=== PATIENT | female | born 1945 | race Caucasian/White ===

== ENCOUNTER → 2016-07-12 | Outpatient (REF) | payer MEDICARE, BC | LOC: M SFHCCLAY 10:47 | PROVIDERS: ATTEND Family Medicine | DX: I10 Essential (primary) hypertension (principal); G45.9 Transient cerebral ischemic attack, unspecified ==

== ENCOUNTER → 2016-07-21 | Outpatient (REF) | payer MEDICARE, BC ==
[2016-07-21 12:19] LABS: MEAN CORPUSCULAR HEMOGLOBIN 33.9 pg (27.0-33.0); MEAN CORPUSCULAR HGB CONC 34.3 g/dl (32.0-36.5); MEAN CORPUSCULAR VOLUME 98.8 fl (80.0-96.0); RED CELL DISTRIBUTION WIDTH 12.5 % (11.5-14.5); WHITE BLOOD COUNT 4.3 K/mm3 (4.0-10.0)
[2016-07-21 12:46] LABS: ALBUMIN 3.5 GM/DL (3.2-5.2); ALBUMIN/GLOBULIN RATIO 1.13 (1.00-1.93); BILIRUBIN,TOTAL 0.5 MG/DL (0.2-1.0); CALCIUM LEVEL 9.6 MG/DL (8.8-10.2); CREATININE FOR GFR 0.99 MG/DL (0.55-1.02); GLOMERULAR FILTRATION RATE 58.5 (>39); POTASSIUM SERUM 4.3 MEQ/L (3.5-5.1); TOTAL PROTEIN 6.6 GM/DL (6.4-8.2)
== END ==
LOC: M SFHCCLAY 08:55
PROVIDERS: ATTEND Family Medicine
DX: L30.9 Dermatitis, unspecified (principal); I10 Essential (primary) hypertension; G45.9 Transient cerebral ischemic attack, unspecified

== ENCOUNTER → 2016-11-11 | Outpatient (REF) | payer MEDICARE, BC ==
[2016-11-11 16:51] LABS: CREATININE FOR GFR 1.09 MG/DL (0.55-1.02); GLOMERULAR FILTRATION RATE 52.4 (>39)
== END ==
LOC: M LAB REF 16:15
PROVIDERS: ATTEND Nurse Practitioner Family
DX: I65.23 Occlusion and stenosis of bilateral carotid arteries (principal)

== ENCOUNTER → 2016-12-01 | Outpatient (CLI) | payer MEDICARE, BC ==
--- NOTE | 2016-12-01 11:48 | REPMRS ---
Patient History Patient is postmenopausal and has history of other cancer at age 53. No known family history of cancer. Taking estrogen for 6 years. Digital Woman Screen Mammo: December 01, 2016 - Exam #: [id number] Bilateral CC and MLO view(s) were taken. Technologist: Trina Lovett, Technologist Prior study comparison: November 30, 2015, digital woman screen mammo performed at [facility]. November 27, 2014, digital woman screen mammo performed at [facility]. November 26, 2013, digital woman screen mammo performed at [facility]. FINDINGS: There are scattered fibroglandular densities. There has been no change in the appearance of the mammogram from the prior studies. There is a mild amount of scattered fibroglandular density which is fairly symmetric. There is no interval development of dominant mass, architectural distortion, or clustered microcalcification suggestive of malignancy. ASSESSMENT: BI-RADS/ACR category 1 mammogram. Negative. Recommendation Routine screening mammogram in 1 year (for women over age 40). This mammogram was interpreted with the aid of an FDA-approved computer-aided dectection system. Electronically Signed By: Gio Smith MD 12/01/16 [id number]
--- NOTE | 2016-12-02 09:01 | DEXA ---
AP SPINE L1 - L4 1.549 2.9 4.6 LT FEMUR TOTAL 1.089 0.6 2.3 RT FEMUR TOTAL 1.161 1.2 2.9 TOTAL BODY TOTAL OTHER DUAL FEMUR FRAX* ASSESSMENT Risk factors: 10 year probability of fracture Major osteoporotic fracture % Hip fracture % COMMENTS: Normal bone densitometry of the spine and hips. The density of the right hip has increased 2.1% since 11/10/2010. The density of the spine has increased 9.6% since the initial exam on 2002. The spine density has increased 4.1% since the most recent exam on 11/10/2010. The density of the left hip has decreased 1.6% since the initial exam on 2002. The density of the left hip has decreased 0.1% since the most recent exam on . FOLLOW-UP: Recommendation for the next bone density exam: 5 years. KRISTEN
== END ==
LOC: M WHC 09:56
PROVIDERS: ATTEND Nurse Practitioner Family
DX: Z01.419 Encounter for gynecological examination (general) (routine) without abnormal findings (principal); Z12.31 Encounter for screening mammogram for malignant neoplasm of breast; N95.9 Unspecified menopausal and perimenopausal disorder; Z12.12 Encounter for screening for malignant neoplasm of rectum; Z78.0 Asymptomatic menopausal state; Z92.23 Personal history of estrogen therapy
CPT/HCPCS: 77080; G0101; G0202

== ENCOUNTER → 2017-07-12 | Outpatient (REF) | payer MEDICARE, BC ==
[2017-07-12 16:53] LABS: HEMATOCRIT 38.4 % (36.0-47.0); HEMOGLOBIN 12.8 g/dl (12.0-15.5); MEAN CORPUSCULAR HEMOGLOBIN 32.8 pg (27.0-33.0); MEAN CORPUSCULAR HGB CONC 33.3 g/dl (32.0-36.5); MEAN CORPUSCULAR VOLUME 98.5 fl (80.0-96.0); PLATELET COUNT, AUTOMATED 224 10^3/uL (150-450); RED CELL DISTRIBUTION WIDTH 12.2 % (11.5-14.5); WHITE BLOOD COUNT 6.1 10^3/uL (4.0-10.0)
[2017-07-12 18:15] LABS: VITAMIN B12 LEVEL 1382 PG/ML (247-911)
[2017-07-12 18:23] LABS: ALBUMIN 3.9 GM/DL (3.2-5.2); ALBUMIN/GLOBULIN RATIO 1.15 (1.00-1.93); ALKALINE PHOSPHATASE 60 U/L (45-117); ALT/SGPT 27 U/L (12-78); ANION GAP 5 MEQ/L (8-16); AST/SGOT 16 U/L (7-37); BILIRUBIN,TOTAL 0.5 MG/DL (0.2-1.0); BLOOD UREA NITROGEN 27 MG/DL (7-18); CALCIUM LEVEL 9.3 MG/DL (8.8-10.2); CARBON DIOXIDE LEVEL 28 MEQ/L (21-32); CHLORIDE LEVEL 110 MEQ/L (98-107); CHOLESTEROL LEVEL 174 MG/DL (<200); CREATININE FOR GFR 1.01 MG/DL (0.55-1.30); GLUCOSE, FASTING 92 MG/DL (70-100); HDL CHOLESTEROL 71 MG/DL (>40); LDL CHOLESTEROL 81.8 MG/DL (<100); NON-HDL-C 103 MG/DL; POTASSIUM SERUM 4.7 MEQ/L (3.5-5.1); SODIUM LEVEL 143 MEQ/L (136-145); TOTAL PROTEIN 7.3 GM/DL (6.4-8.2); TRIGLYCERIDES LEVEL 106 MG/DL (<150)
== END ==
LOC: M SFHCCLAY 10:28
DX: Z00.00 Encounter for general adult medical examination without abnormal findings (principal); R41.3 Other amnesia; I10 Essential (primary) hypertension; Z23 Encounter for immunization
CPT/HCPCS: 84443

== ENCOUNTER → 2017-08-02 | Outpatient (CLI) | payer MEDICARE, BC | LOC: M RAD 10:13 | DX: R41.3 Other amnesia (principal); I77.89 Other specified disorders of arteries and arterioles | CPT/HCPCS: 70551 ==

== ENCOUNTER → 2017-11-02 | Outpatient (REF) | payer MEDICARE ==
[2017-11-02 15:27] LABS: BLOOD UREA NITROGEN 23 MG/DL (7-18)
[2017-11-02 15:27] LABS: GLOMERULAR FILTRATION RATE 51.7 (>39)
== END ==
LOC: M LABDRAWC 12:44
DX: I65.22 Occlusion and stenosis of left carotid artery (principal)
CPT/HCPCS: 82565

== ENCOUNTER → 2017-11-20 | Outpatient (CLI) | payer MEDICARE | LOC: M WHC 10:03 | DX: Z01.419 Encounter for gynecological examination (general) (routine) without abnormal findings (principal); Z12.13 Encounter for screening for malignant neoplasm of small intestine (principal); Z78.0 Asymptomatic menopausal state; Z12.31 Encounter for screening mammogram for malignant neoplasm of breast; Z92.23 Personal history of estrogen therapy; Z12.12 Encounter for screening for malignant neoplasm of rectum | CPT/HCPCS: 77067 ==

== ENCOUNTER → 2018-08-02 | Outpatient (CLI) | payer MEDICARE ==
--- NOTE | 2018-08-02 14:07 | REP ---
RIGHT HIP, TWO VIEWS: HISTORY: Arthritis. There is no acute fracture or dislocation. There is minimal narrowing of the joint space with associated sclerosis and osteophyte formation. IMPRESSION: Degenerative change as described above.
== END ==
LOC: M CLY 12:43
PROVIDERS: ATTEND Family Medicine
DX: M16.11 Unilateral primary osteoarthritis, right hip (principal)
CPT/HCPCS: 73502; G0463

== ENCOUNTER → 2018-08-07 | Outpatient (REF) | payer MEDICARE ==
[2018-08-07 13:12] LABS: CALCIUM LEVEL 9.3 MG/DL (8.8-10.2); CHOLESTEROL RISK RATIO 2.666 (<5); CREATININE FOR GFR 1.07 MG/DL (0.55-1.30); GLOMERULAR FILTRATION RATE 53.2 (>39); POTASSIUM SERUM 4.4 MEQ/L (3.5-5.1)
== END ==
LOC: M SFHCCLAY 09:02
PROVIDERS: ATTEND Family Medicine
DX: E78.00 Pure hypercholesterolemia, unspecified (principal)

== ENCOUNTER → 2018-11-27 | Outpatient (CLI) | payer MEDICARE ==
--- NOTE | 2018-11-27 12:29 | REPMRS ---
Patient History The patient states she had a clinical breast exam in 11/2018. Patient is postmenopausal and has history of other cancer at age 53. No known family history of cancer. Took estrogen for 7 years. 3D TOMOSYNTHESIS WAS PERFORMED. [facility] lifetime risk for breast cancer is 2.7%. Digital Woman Screen Mammo: November 27, 2018 - Exam #: [id number] Bilateral CC and MLO view(s) were taken. Technologist: Alcira Guevara, Technologist Prior study comparison: November 20, 2017, bilateral digital woman screen mammo performed at [facility]. December 01, 2016, digital woman screen mammo performed at [facility] [employer] [facility]. FINDINGS: There are scattered fibroglandular densities. There has been no change in the appearance of the mammogram from the prior studies. There is a mild amount of residual fibroglandular tissue which is fairly symmetric. There is no interval development of dominant mass, architectural distortion, or clustered microcalcification suggestive of malignancy. Assessment: BI-RADS/ACR category 1 mammogram. Negative Mammogram. Recommendation Routine screening mammogram in 1 year (for women over age 40). This mammogram was interpreted with the aid of an FDA-approved computer-aided dectection system. Electronically Signed By: Nato Valdez MD 11/27/18 [id number]
== END ==
LOC: M WHC 10:05
PROVIDERS: ATTEND Nurse Practitioner Family
DX: Z01.419 Encounter for gynecological examination (general) (routine) without abnormal findings (principal); Z12.31 Encounter for screening mammogram for malignant neoplasm of breast; Z78.0 Asymptomatic menopausal state; Z85.89 Personal history of malignant neoplasm of other organs and systems; Z92.23 Personal history of estrogen therapy
CPT/HCPCS: 77063; 77067; G0101

== ENCOUNTER → 2019-07-11 | Outpatient (REF) | payer MEDICARE ==
[2019-07-11 16:37] LABS: HEMOGLOBIN 12.4 g/dl (12.0-15.5); MEAN CORPUSCULAR HEMOGLOBIN 32.5 pg (27.0-33.0); MEAN CORPUSCULAR HGB CONC 32.6 g/dl (32.0-36.5); MEAN CORPUSCULAR VOLUME 99.7 fl (80.0-96.0); PLATELET COUNT, AUTOMATED 226 10^3/uL (150-450); RED BLOOD COUNT 3.81 10^6/uL (4.00-5.40); WHITE BLOOD COUNT 5.1 10^3/uL (4.0-10.0)
[2019-07-11 16:51] LABS: ALBUMIN 3.7 GM/DL (3.2-5.2); BILIRUBIN,TOTAL 0.8 MG/DL (0.2-1.0); CALCIUM LEVEL 8.8 MG/DL (8.8-10.2); CHOLESTEROL RISK RATIO 2.562 (<5); CREATININE FOR GFR 1.22 MG/DL (0.55-1.30); GLOMERULAR FILTRATION RATE 45.6 (>39); PERCENT SATURATION 36.7 % (13.2-45.0); POTASSIUM SERUM 4.4 MEQ/L (3.5-5.1); THYROID STIMULATING HORMONE 0.998 uIU/ML (0.358-3.740); TOTAL PROTEIN 7.1 GM/DL (6.4-8.2)
== END ==
LOC: M SFHCCLAY 10:51
PROVIDERS: ATTEND Family Medicine
DX: I10 Essential (primary) hypertension (principal); K21.9 Gastro-esophageal reflux disease without esophagitis; E83.110 Hereditary hemochromatosis

== ENCOUNTER → 2019-08-09 | Outpatient (REF) | payer MEDICARE ==
[2019-08-09 11:51] LABS: BASO % 0.9 % (0.0-1.0); EOS # 0.1 10^3/uL (0.0-0.5); EOS % 1.6 % (0.0-3.0); HEMATOCRIT 38.5 % (36.0-47.0); LYMPH # 1.6 10^3/uL (1.5-5.0); LYMPH % 35.5 % (24.0-44.0); MEAN CORPUSCULAR HEMOGLOBIN 33.2 pg (27.0-33.0); MEAN CORPUSCULAR HGB CONC 33.8 g/dl (32.0-36.5); MEAN CORPUSCULAR VOLUME 98.5 fl (80.0-96.0); MONO # 0.5 10^3/uL (0.0-0.8); MONO % 10.5 % (0.0-5.0); NEUTROPHILS # 2.2 10^3/uL (1.5-8.5); NEUTROPHILS % 51.3 % (36.0-66.0); PLATELET COUNT, AUTOMATED 215 10^3/uL (150-450); RED BLOOD COUNT 3.91 10^6/uL (4.00-5.40); WHITE BLOOD COUNT 4.4 10^3/uL (4.0-10.0)
[2019-08-09 12:27] LABS: PERCENT SATURATION 53.2 % (13.2-45.0)
== END ==
LOC: M SFHCPLAZ 11:15
PROVIDERS: ATTEND Family Medicine
DX: E83.110 Hereditary hemochromatosis (principal)

== ENCOUNTER → 2019-09-06 | Outpatient (REF) | payer MEDICARE ==
[2019-09-06 16:06] LABS: HEMATOCRIT 38.9 % (36.0-47.0); HEMOGLOBIN 12.8 g/dl (12.0-15.5); MEAN CORPUSCULAR HEMOGLOBIN 32.4 pg (27.0-33.0); MEAN CORPUSCULAR HGB CONC 32.9 g/dl (32.0-36.5); MEAN CORPUSCULAR VOLUME 98.5 fl (80.0-96.0); PLATELET COUNT, AUTOMATED 223 10^3/uL (150-450); RED BLOOD COUNT 3.95 10^6/uL (4.00-5.40); WHITE BLOOD COUNT 4.4 10^3/uL (4.0-10.0)
[2019-09-06 16:39] LABS: FERRITIN 36 NG/ML (8-252); IRON (FE) 165 UG/DL (50-170)
== END ==
LOC: M SFHCCLAY 09:40
PROVIDERS: ATTEND Family Medicine
DX: E83.110 Hereditary hemochromatosis (principal)

== ENCOUNTER → 2019-11-29 | Outpatient (CLI) | payer MEDICARE ==
--- NOTE | 2019-11-29 12:11 | REPMRS ---
Patient History The patient states she had a clinical breast exam in 2019. No known family history of cancer. Took estrogen for 7 years. 3D TOMOSYNTHESIS WAS PERFORMED. [facility]%. ASTRID FRANCOIS A. Digital Woman Screen Mammo: November 29, 2019 - Exam #: [id number] Bilateral CC and MLO view(s) were taken. Technologist: Lilia Barney, Technologist Prior study comparison: November 27, 2018, bilateral digital woman screen mammo performed at [facility]. November 20, 2017, bilateral digital woman screen mammo performed at [facility]. FINDINGS: There are scattered fibroglandular densities. There has been no change in the appearance of the mammogram from the prior studies. There is a mild amount of residual fibroglandular tissue which is fairly symmetric. There is no interval development of dominant mass, architectural distortion, or clustered microcalcification suggestive of malignancy. Assessment: BI-RADS/ACR category 1 mammogram. Negative Mammogram. Recommendation Routine screening mammogram in 1 year (for women over age 40). This mammogram was interpreted with the aid of an FDA-approved computer-aided dectection system. Electronically Signed By: Nato Valdez MD 11/29/19 0630
== END ==
LOC: M WHC 10:32
PROVIDERS: ATTEND Nurse Practitioner Family
DX: Z12.31 Encounter for screening mammogram for malignant neoplasm of breast (principal); Z92.23 Personal history of estrogen therapy

== ENCOUNTER → 2019-12-05 | Outpatient (REF) | payer MEDICARE ==
[2019-12-05 12:40] LABS: HEMOGLOBIN 12.5 g/dl (12.0-15.5); MEAN CORPUSCULAR HEMOGLOBIN 32.4 pg (27.0-33.0); MEAN CORPUSCULAR HGB CONC 32.1 g/dl (32.0-36.5); PLATELET COUNT, AUTOMATED 216 10^3/uL (150-450); RED BLOOD COUNT 3.86 10^6/uL (4.00-5.40); WHITE BLOOD COUNT 5.6 10^3/uL (4.0-10.0)
[2019-12-05 13:07] LABS: ALBUMIN 3.5 GM/DL (3.2-5.2); BILIRUBIN,TOTAL 0.5 MG/DL (0.2-1.0); CALCIUM LEVEL 9.3 MG/DL (8.8-10.2); CHOLESTEROL RISK RATIO 2.984 (<5); CREATININE FOR GFR 1.23 MG/DL (0.55-1.30); FREE T4 1.15 NG/DL (0.76-1.46); GLOMERULAR FILTRATION RATE 45.2 (>39); POTASSIUM SERUM 4.7 MEQ/L (3.5-5.1); THYROID STIMULATING HORMONE 1.8 uIU/ML (0.358-3.740); TOTAL PROTEIN 6.8 GM/DL (6.4-8.2)
== END ==
LOC: M SFHCCLAY 08:52
PROVIDERS: ATTEND Family Medicine
DX: I10 Essential (primary) hypertension (principal); K21.9 Gastro-esophageal reflux disease without esophagitis; E78.00 Pure hypercholesterolemia, unspecified; E04.1 Nontoxic single thyroid nodule; E83.110 Hereditary hemochromatosis

== ENCOUNTER → 2019-12-06 | Outpatient (REF) | payer MEDICARE | LOC: M LAB REF 18:18 | PROVIDERS: ATTEND Dermatology | DX: C44.622 Squamous cell carcinoma of skin of right upper limb, including shoulder (principal); L90.5 Scar conditions and fibrosis of skin; L57.0 Actinic keratosis; L81.4 Other melanin hyperpigmentation ==

== ENCOUNTER → 2019-12-13 | Outpatient (REF) | payer MEDICARE | LOC: M LAB REF 08:30 | PROVIDERS: ATTEND Dermatology | DX: L90.5 Scar conditions and fibrosis of skin (principal); L57.0 Actinic keratosis; L81.4 Other melanin hyperpigmentation ==

== ENCOUNTER → 2020-07-09 | Outpatient (REF) | payer MEDICARE ==
[2020-07-09 17:09] LABS: HEMOGLOBIN 12.4 g/dl (12.0-15.5); MEAN CORPUSCULAR HEMOGLOBIN 33.2 pg (27.0-33.0); MEAN CORPUSCULAR HGB CONC 32.6 g/dl (32.0-36.5); MEAN CORPUSCULAR VOLUME 101.9 fl (80.0-96.0); PLATELET COUNT, AUTOMATED 211 10^3/uL (150-450); RED BLOOD COUNT 3.73 10^6/uL (4.00-5.40); WHITE BLOOD COUNT 5.1 10^3/uL (4.0-10.0)
[2020-07-09 17:44] LABS: CHOLESTEROL RISK RATIO 2.652 (<5)
== END ==
LOC: M SFHCCLAY 10:09
PROVIDERS: ATTEND Family Medicine
DX: E78.00 Pure hypercholesterolemia, unspecified (principal); E83.110 Hereditary hemochromatosis
CPT/HCPCS: 80061; 82728; 83540; 85027; G0463

== ENCOUNTER 2020-08-13 07:35 | Emergency (ER) | payer MEDICARE ==
[~2020-08-13] VITALS: Ht 160 cm; Wt 70.9 kg
[2020-08-13] MEDS ORDERED: METO1TAB7 PO (07:47)
[2020-08-13] MEDS ORDERED: ATOR1TAB21 PO (07:47)
[2020-08-13] MEDS ORDERED: TRIA37.53 PO (07:47)
[2020-08-13] MEDS ORDERED: PLAV1TAB2 PO (07:47)
[2020-08-13] MEDS ORDERED: PANT20TA6 PO (07:47)
[2020-08-13] MEDS ORDERED: NS 500 ML IV ONE (08:30)
[2020-08-13] MEDS ORDERED: MORPHINE 2 MG/ML 1ML VIAL (J2270) IV ONE (08:30)
--- NOTE | 2020-08-13 09:10 | REP ---
INDICATION: right flank pain, renal colic. COMPARISON: 11/06/2008 TECHNIQUE: Standard helical technique without intravenous contrast or oral bowel preparatory contrast administration. Stone protocol utilized secondary to right flank pain. FINDINGS: There are left basilar curvilinear densities centrally unchanged from the prior exam. There are no pleural or pericardial effusions. Limited evaluation of the solid intra-abdominal organs show no gross abnormalities. Limited evaluation of the adrenal glands show no gross abnormalities. There is fullness of the pancreatic head which has developed since the last exam. There is no intrapancreatic ductal dilatation. Seen arising from the pancreatic body there is a new oval-shaped 1.7 cm sized low-density lesion at least a portion of which has near water density Hounsfield unit readings. There is no nephroureterolithiasis, hydronephrosis, or hydroureter. Seen arising from the interpolar region of the right kidney there is an oval-shaped 2.7 cm sized smoothly marginated low-density structure which has water density Hounsfield unit readings. Limited evaluation of the bowel loops and the mesenteries show no gross abnormalities. There is no free fluid or free air. Limited evaluation of the abdominal aorta and para-regions show no gross abnormalities. There is no evidence of adenopathy. IMPRESSION: 1. Simple appearing right renal cyst as described above. 2. Findings involving the pancreas as described above. Pre and post gadolinium enhanced pancreatic MRI is recommended. 3. Other findings as described above. <Electronically signed by Jese Armendariz > 08/13/20 [id number]
[2020-08-13 09:46] LABS: BASO % 0.5 % (0.0-1.0); EOS # 0.1 10^3/uL (0.0-0.5); EOS % 1.3 % (0.0-3.0); HEMOGLOBIN 12.8 g/dl (12.0-15.5); LYMPH # 1.2 10^3/uL (1.5-5.0); LYMPH % 18.7 % (24.0-44.0); MEAN CORPUSCULAR HEMOGLOBIN 32.8 pg (27.0-33.0); MEAN CORPUSCULAR HGB CONC 32.8 g/dl (32.0-36.5); MONO # 0.6 10^3/uL (0.0-0.8); MONO % 9.2 % (2.0-8.0); NEUTROPHILS # 4.4 10^3/uL (1.5-8.5); PLATELET COUNT, AUTOMATED 209 10^3/uL (150-450); WHITE BLOOD COUNT 6.3 10^3/uL (4.0-10.0)
[2020-08-13 10:06] LABS: ALBUMIN 3.6 GM/DL (3.2-5.2); BILIRUBIN,DIRECT 0.1 MG/DL (0.0-0.2); BILIRUBIN,TOTAL 0.3 MG/DL (0.2-1.0); TOTAL PROTEIN 6.9 GM/DL (6.4-8.2)
[2020-08-13 11:20] VITALS: BP_DIAS 71
[2020-08-13] MEDS ORDERED: PROHANCE 279.3MG/ML 5ML VIAL As Ordered ONE (12:12)
--- NOTE | 2020-08-13 13:39 | REP ---
INDICATION: pancreatic lesion. COMPARISON: CT today. TECHNIQUE: Multiple sequences obtained in the axial coronal planes prior to and following the intravenous administration of 7 cc ProHance. FINDINGS: In the body of the pancreas an oval cyst is visualized, as seen on today's CT scan. It measures approximately 1.7 x 1.2 cm. There is no internal enhancement. There is no pancreatic duct dilatation. No other pancreatic lesion is seen. The visualized liver is unremarkable with no evidence of cystic or solid nodule and no evidence of abnormal enhancement. The patient has had a prior cholecystectomy. There is no intrahepatic or extrahepatic biliary dilatation. Spleen is normal in size with no intrinsic abnormality. The adrenal glands are normal. A right renal cyst is present with no suspicious enhancement measuring approximately 2.3 cm in diameter. There is no hydronephrosis bilaterally. Multiple other scattered subcentimeter cysts are seen in both kidneys. There is no adenopathy or free fluid. IMPRESSION: Oval cyst in the body of the pancreas measures 1.7 cm in maximum diameter, with no internal enhancement. Recommend follow-up MRI with and without contrast in 1 year. <Electronically signed by Nato Valdez > 08/13/20 [id number]
[2020-08-13] MEDS ORDERED: TRAM50TA2 PO (14:00)
[2020-08-13 14:15] VITALS: BP_SYST 171
[2020-08-14 13:27] LABS: PERCENT SATURATION 42.8 % (13.2-45.0)
== END 2020-08-13 14:33 | disposition home or self-care (01) ==
LOC: M ED 07:35
DX: M54.16 Radiculopathy, lumbar region (principal); M51.36 Other intervertebral disc degeneration, lumbar region; N28.1 Cyst of kidney, acquired; I10 Essential (primary) hypertension; K21.9 Gastro-esophageal reflux disease without esophagitis; E78.5 Hyperlipidemia, unspecified; Z88.1 Allergy status to other antibiotic agents; Z88.2 Allergy status to sulfonamides
CPT/HCPCS: 36415; 74176; 74183; 80047; 80076; 81001; 82728; 83550; 83690; 85025; 87086; 96360; 96361; 99284; A9576

== ENCOUNTER → 2020-08-14 | Outpatient (REF) | payer MEDICARE ==
[~2020-08-14] MED LIST: ATOR1TAB21 PO; METO1TAB7 PO; PANT20TA6 PO; PLAV1TAB2 PO; TRAM50TA2 PO; TRIA37.53 PO
== END ==
LOC: M SFHCCLAY 11:05
PROVIDERS: ATTEND Family Medicine
DX: E83.110 Hereditary hemochromatosis (principal)

== ENCOUNTER → 2020-08-14 | Outpatient (CLI) | payer MEDICARE ==
--- NOTE | 2020-08-14 12:30 | REP ---
INDICATION: R10.9 FLANK PAIN. COMPARISON: Five view series of 07/01/2005 TECHNIQUE: AP and lateral views FINDINGS: Today's limited examination shows heavy bridging bilateral marginal osteophyte formation seen involving all imaged thoracic levels. Bridging left-sided marginal osteophyte formation is seen at the T12-L1 level. Non bridging but prominent bilateral marginal osteophyte formation is seen at all other lumbar levels. There is moderate disc space narrowing at every level which has increased from the prior exam. There is anterior lipping at every level which is increased from the prior exam. Vertebral body height and alignment is essentially unchanged. IMPRESSION: Chronic changes as described above seen on this limited exam. <Electronically signed by Jese Armendariz > 08/14/20 [id number]
== END ==
LOC: M CLY 11:15
PROVIDERS: ATTEND Family Medicine
DX: M25.78 Osteophyte, vertebrae (principal); M51.34 Other intervertebral disc degeneration, thoracic region; R10.9 Unspecified abdominal pain
CPT/HCPCS: 72070; G0463

== ENCOUNTER → 2020-09-10 | Outpatient (REF) | payer MEDICARE | LOC: M LAB REF 18:37 | PROVIDERS: ATTEND Dermatology | DX: D04.72 Carcinoma in situ of skin of left lower limb, including hip (principal); L57.0 Actinic keratosis | CPT/HCPCS: 11102; 11103; 17000; 88305; G0463 ==

== ENCOUNTER → 2020-11-24 | Outpatient (REF) | payer MEDICARE | LOC: M LAB REF 17:47 | PROVIDERS: ATTEND Dermatology | DX: L57.0 Actinic keratosis (principal); L90.5 Scar conditions and fibrosis of skin ==

== ENCOUNTER → 2020-12-02 | Outpatient (CLI) | payer MEDICARE ==
--- NOTE | 2020-12-02 10:59 | REPMRS ---
Patient History The patient states she had a clinical breast exam in November 2020. No known family history of cancer. Took estrogen for 7 years. Tomosynthesis is performed. Volpara breast density is b. [facility] lifetime risk of breast cancer 2.2%. Patient states no breast complaints today. Patient has signed MRS History Sheet. Digital Woman Screen Mammo: December 02, 2020 - Exam #: [id number] Bilateral CC and MLO view(s) were taken. Technologist: Hazel Bowles Technologist Prior study comparison: November 29, 2019, bilateral digital woman screen mammo performed at [facility]. November 27, 2018, bilateral digital woman screen mammo performed at [facility]. FINDINGS: There are scattered fibroglandular densities. There has been no change in the appearance of the mammogram from the prior studies. There is a mild amount of residual fibroglandular tissue which is fairly symmetric. There is no interval development of dominant mass, architectural distortion, or clustered microcalcification suggestive of malignancy. Assessment: BI-RADS/ACR category 1 mammogram. Negative Mammogram. Recommendation Routine screening mammogram in 1 year (for women over age 40). This mammogram was interpreted with the aid of an FDA-approved computer-aided dectection system. Electronically Signed By: Nato Valdez MD 12/02/20 1058
== END ==
LOC: M WHC 09:14
PROVIDERS: ATTEND Nurse Practitioner Women's Health
DX: Z01.419 Encounter for gynecological examination (general) (routine) without abnormal findings (principal); Z12.31 Encounter for screening mammogram for malignant neoplasm of breast
CPT/HCPCS: 77063; 77067; G0101

== ENCOUNTER → 2021-07-08 | Outpatient (REF) | payer MEDICARE ==
[2021-07-08 16:00] LABS: HEMATOCRIT 37.6 % (36.0-47.0); HEMOGLOBIN 12.6 g/dl (12.0-15.5); MEAN CORPUSCULAR HEMOGLOBIN 33.9 pg (27.0-33.0); MEAN CORPUSCULAR HGB CONC 33.5 g/dl (32.0-36.5); MEAN CORPUSCULAR VOLUME 101.1 fl (80.0-96.0); PLATELET COUNT, AUTOMATED 270 10^3/uL (150-450); RED BLOOD COUNT 3.72 10^6/uL (4.00-5.40); WHITE BLOOD COUNT 6.3 10^3/uL (4.0-10.0)
[2021-07-08 16:19] LABS: ALBUMIN 3.7 GM/DL (3.2-5.2); ALT/SGPT 20 U/L (12-78); BILIRUBIN,TOTAL 0.5 MG/DL (0.2-1.0); BLOOD UREA NITROGEN 28 MG/DL (7-18); CALCIUM LEVEL 9.2 MG/DL (8.8-10.2); CARBON DIOXIDE LEVEL 28 MEQ/L (21-32); CHLORIDE LEVEL 108 MEQ/L (98-107); CREATININE FOR GFR 1.09 MG/DL (0.55-1.30); FERRITIN 48 NG/ML (8-252); FREE T4 1.31 NG/DL (0.76-1.46); GLOMERULAR FILTRATION RATE 51.7 (>39); GLUCOSE, FASTING 96 MG/DL (70-100); IRON (FE) 75 UG/DL (50-170); PERCENT SATURATION 24.8 % (13.2-45.0); POTASSIUM SERUM 4.3 MEQ/L (3.5-5.1); SODIUM LEVEL 142 MEQ/L (136-145); TOTAL IRON BINDING CAPACITY 303 UG/DL (250-450); VITAMIN B12 LEVEL > 2000 PG/ML (247-911)
== END ==
LOC: M SFHCCLAY 11:37
PROVIDERS: ATTEND Family Medicine
DX: E83.110 Hereditary hemochromatosis (principal); I10 Essential (primary) hypertension; R41.3 Other amnesia

== ENCOUNTER → 2021-08-03 | Outpatient (CLI) | payer MEDICARE ==
[~2021-08-03] MED LIST changes: -TRIA37.53 PO; +TRIA37.577 PO
== END ==
LOC: M PLAIMG 09:48
PROVIDERS: ATTEND Family Medicine
DX: R41.3 Other amnesia (principal)

== ENCOUNTER → 2021-08-12 | Outpatient (CLI) | payer MEDICARE ==
[2021-08-12 10:17] LABS: HEMATOCRIT 36.7 % (36.0-47.0); HEMOGLOBIN 12.3 g/dl (12.0-15.5); MEAN CORPUSCULAR HGB CONC 33.5 g/dl (32.0-36.5); MEAN CORPUSCULAR VOLUME 98.4 fl (80.0-96.0); PLATELET COUNT, AUTOMATED 208 10^3/uL (150-450); RED BLOOD COUNT 3.73 10^6/uL (4.00-5.40)
[2021-08-12 10:42] LABS: PERCENT SATURATION 31.3 % (13.2-45.0)
== END ==
LOC: M LAB 09:45
PROVIDERS: ATTEND Family Medicine
DX: E83.110 Hereditary hemochromatosis (principal)

== ENCOUNTER → 2021-09-24 | Outpatient (REF) | payer MEDICARE | LOC: M SFHCDERM 08:05 | PROVIDERS: ATTEND Nurse Practitioner Family | DX: D23.71 Other benign neoplasm of skin of right lower limb, including hip (principal) ==

== ENCOUNTER → 2021-09-27 | Outpatient (CLI) | payer MEDICARE ==
[2021-09-27 10:56] LABS: HEMATOCRIT 36.2 % (36.0-47.0); HEMOGLOBIN 12.3 g/dl (12.0-15.5); MEAN CORPUSCULAR HEMOGLOBIN 32.8 pg (27.0-33.0); MEAN CORPUSCULAR VOLUME 96.5 fl (80.0-96.0); PLATELET COUNT, AUTOMATED 209 10^3/uL (150-450); RED BLOOD COUNT 3.75 10^6/uL (4.00-5.40); WHITE BLOOD COUNT 5.3 10^3/uL (4.0-10.0)
[2021-09-27 11:45] LABS: PERCENT SATURATION 59.1 % (13.2-45.0)
== END ==
LOC: M LAB 09:59
PROVIDERS: ATTEND Family Medicine
DX: E83.110 Hereditary hemochromatosis (principal)

== ENCOUNTER → 2022-07-13 | Outpatient (REF) | payer MEDICARE ==
[~2022-07-13] MED LIST changes: +CLOP75TA99 PO; -PLAV1TAB2 PO
[2022-07-13 17:55] LABS: HEMATOCRIT 41.1 % (36.0-47.0); HEMOGLOBIN 13.4 g/dl (12.0-15.5); MEAN CORPUSCULAR HEMOGLOBIN 33.1 pg (27.0-33.0); MEAN CORPUSCULAR HGB CONC 32.6 g/dl (32.0-36.5); MEAN CORPUSCULAR VOLUME 101.5 fl (80.0-96.0); PLATELET COUNT, AUTOMATED 316 10^3/uL (150-450); RED BLOOD COUNT 4.05 10^6/uL (4.00-5.40); WHITE BLOOD COUNT 4.8 10^3/uL (4.0-10.0)
[2022-07-13 18:18] LABS: ALBUMIN 3.8 G/DL (3.2-5.2); BILIRUBIN,TOTAL 0.6 MG/DL (0.3-1.2); CALCIUM LEVEL 9.5 MG/DL (8.3-10.6); CHOLESTEROL RISK RATIO 2.41 (<5); CREATININE FOR GFR 1.03 MG/DL (0.55-1.30); HDL CHOLESTEROL 81.6 MG/DL (>40); LDL CHOLESTEROL 92.2 MG/DL (<100); NON-HDL-C 115.4 MG/DL; PERCENT SATURATION 19.4 % (13.2-45.0); POTASSIUM SERUM 4.9 MMOL/L (3.5-5.1)
[2022-07-13 18:20] LABS: FERRITIN 10.8 NG/ML (7.3-270.7); FREE T4 1.25 NG/DL (0.89-1.76); THYROID STIMULATING HORMONE 1.728 uIU/ML (0.55-4.78)
== END ==
LOC: M SFHCCLAY 09:53
PROVIDERS: ATTEND Family Medicine
DX: I10 Essential (primary) hypertension (principal); E83.110 Hereditary hemochromatosis; R41.3 Other amnesia; E78.00 Pure hypercholesterolemia, unspecified

== ENCOUNTER → 2023-09-06 | Outpatient (REF) | payer MEDICARE ==
[2023-09-06 19:11] LABS: FERRITIN 10.8 NG/ML (7.3-270.7)
[2023-09-06 19:16] LABS: CALCIUM LEVEL 9.6 MG/DL (8.3-10.6); CREATININE FOR GFR 0.97 MG/DL (0.55-1.30); GLOMERULAR FILTRATION RATE 58.8 (>32); MAGNESIUM LEVEL 1.7 MG/DL (1.8-2.4)
[2023-09-06 19:17] LABS: PERCENT SATURATION 35.2 % (13.2-45.0)
== END ==
LOC: M SFHCCLAY 11:48
PROVIDERS: ATTEND Family Medicine
DX: E83.110 Hereditary hemochromatosis (principal); R00.2 Palpitations

== ENCOUNTER → 2024-12-16 | Outpatient (REF) | payer MEDICARE ==
[2024-12-16 17:32] LABS: BASO # 0.0 10^3/uL (0.0-0.2); BASO % 0.6 % (0.0-1.0); EOS # 0.0 10^3/uL (0.0-0.5); EOS % 0.8 % (0.0-3.0); LYMPH # 1.2 10^3/uL (1.5-5.0); LYMPH % 25.1 % (24.0-44.0); MONO # 0.6 10^3/uL (0.0-0.8); MONO % 13.3 % (2.0-8.0); NEUTROPHILS # 2.8 10^3/uL (1.5-8.5); NEUTROPHILS % 60.0 % (36.0-66.0); PLATELET COUNT, AUTOMATED 233 10^3/uL (150-450)
[2024-12-16 17:50] LABS: ESTIMATED AVERAGE GLUCOSE 105.0 MG/DL (60-110)
[2024-12-16 17:55] LABS: ALT/SGPT 18.0 U/L (7.0-40); AST/SGOT 19.0 U/L (<34); CALCIUM LEVEL 9.7 MG/DL (8.3-10.6); CARBON DIOXIDE LEVEL 29.0 MMOL/L (20-31); CHLORIDE LEVEL 106.0 MMOL/L (98-107); CHOLESTEROL LEVEL 171.0 MG/DL (<200); CHOLESTEROL RISK RATIO 2.4 (<5); CREATININE FOR GFR 1.12 MG/DL (0.55-1.30); GLOMERULAR FILTRATION RATE 49.4 (>32); IRON (FE) 137.0 UG/DL (50-170); LDL CHOLESTEROL 57.1 MG/DL (<100); MAGNESIUM LEVEL 1.9 MG/DL (1.8-2.4); NON-HDL-C 99.9 MG/DL; PERCENT SATURATION 46.1 % (13.2-45.0); POTASSIUM SERUM 5.3 MMOL/L (3.5-5.1); SODIUM LEVEL 144.0 MMOL/L (136-145); TRIGLYCERIDES LEVEL 214.0 MG/DL (<150)
== END ==
LOC: M SFHCCLAY 11:35
PROVIDERS: ATTEND Nurse Practitioner Family
DX: I10 Essential (primary) hypertension (principal); I25.10 Atherosclerotic heart disease of native coronary artery without angina pectoris; E83.110 Hereditary hemochromatosis; R41.3 Other amnesia